=== PATIENT | female | born 1995 | race Caucasian/White ===

== ENCOUNTER 2022-05-02 21:34 | Emergency (ER) | payer OTHER ==
[~2022-05-02] VITALS: Ht 165.1 cm; Wt 68.0 kg
[2022-05-02] MEDS ORDERED: CYCLOBENZAPRINE 10 MG TABLET PO ONE (22:00)
[2022-05-02] MEDS ORDERED: KETOROLAC TROMETHAMINE INJ 30 MG/ML VIAL IM ONE (22:00)
[2022-05-02] MEDS ORDERED: KETOROLAC TROMETHAMINE INJ 30 MG/ML VIAL ONE (22:07)
[2022-05-02] MEDS ORDERED: CYCLOBENZAPRINE 10 MG TABLET ONE (22:07)
[2022-05-02] MEDS ORDERED: CYCL5TAB PO (22:54)
[2022-05-02] MEDS ORDERED: KETO10TA2 PO (22:54)
[2022-05-02 23:00] VITALS: BP 126/74
--- NOTE | 2022-05-02 23:00 | NUR ---
Patient discharged to home in stable condition. Written and verbal after care instructions given. Patient verbalizes understanding of instruction.
== END 2022-05-02 23:01 | disposition home or self-care (01) ==
LOC: ER 21:35
DX: S20.212A Contusion of left front wall of thorax, initial encounter (principal); S80.12XA Contusion of left lower leg, initial encounter; S80.11XA Contusion of right lower leg, initial encounter; V49.59XA Passenger injured in collision with other motor vehicles in traffic accident, initial encounter; Y93.89 Activity, other specified; Y92.413 State road as the place of occurrence of the external cause; Y99.8 Other external cause status
CPT/HCPCS: 99283; 96372; 71100; J1885